=== PATIENT | male | born 1965 | race Caucasian/White ===

== ENCOUNTER 2017-12-22 22:42 | Emergency (ER) | payer OTHER ==
[2017-12-23] MEDS: ONDANSETRON (ODT) 4 MG TAB ODT (02:49)
[2017-12-23] MEDS: DIPHTH/TET/ACEL PERTUSS (ADULT) 0.5 ML VIAL IM* (02:49)
[2017-12-23] MEDS: morphine 4 MG/ML VIAL IM (02:49)
[2017-12-23] MEDS: LIDOCAINE 2% (MDV) 20 ML INJ INJ (02:58)
== END 2017-12-23 04:01 | disposition home or self-care (01) ==
LOC: FTE 22:42
DX: S61.211A Laceration without foreign body of left index finger without damage to nail, initial encounter (principal); W31.1XXA Contact with metalworking machines, initial encounter; Y92.9 Unspecified place or not applicable; Z23 Encounter for immunization
CPT/HCPCS: 12002; 73130-LT; 90471; 90715; 96372; 99284-25